=== PATIENT | female | born 1980 | race Caucasian/White ===

== ENCOUNTER → 2019-08-02 11:21 | Outpatient (BNVA) | payer MEDICAID, SELFPAY | PROVIDERS: Family Provider Family Medicine; PCP Family Medicine; Visit Provider Emergency Medicine | DX: S99.929A Unspecified injury of unspecified foot, initial encounter (principal); M25.562 Pain in left knee; S99.919A Unspecified injury of unspecified ankle, initial encounter; L03.90 Cellulitis, unspecified | CPT/HCPCS: 73562; 73610; 73630 ==

== ENCOUNTER → 2021-01-17 10:45 | Outpatient (BNVA) | payer MEDICAID, SELFPAY | PROVIDERS: Family Provider Family Medicine; PCP Family Medicine; Visit Provider Nurse Practitioner Family | DX: Z11.1 Encounter for screening for respiratory tuberculosis (principal); L73.2 Hidradenitis suppurativa | CPT/HCPCS: 86480 ==

== ENCOUNTER 2021-07-06 11:03 | Emergency (ER) | payer MEDICAID, SELFPAY ==
[2021-07-06] VITALS (7 sets, daily range): BP systolic 128–153; BP diastolic 54–102; PULSE 72–98; RESP 16–20; TEMP 36.6–37.2; O2SAT 98–100; BMI 31.0
--- NOTE | 2021-07-06 11:13 | ED_ITS ---
HPI - Abdominal Pain General: Chief Complaint: Abdominal Pain Stated Complaint: severe abdominal pain/vomiting/diarrhea/chills Time Seen by Provider: 07/06/21 11:13 History of Present Illness: Ms. Steel is a 41-year-old lady with history of hidradenitis suppurativa on chronic antibiotics and current use of Humira who presents to the emergency department due to abdominal pain. Symptom onset was acute at approximately 3 AM and woke her up from sleep. She endorses suprapubic and periumbilical pain which is severe in intensity. Since onset symptoms have been constant. She reports numerous episodes of watery diarrhea and emesis. She denies associated blood in stool or vomit. No other specific changes in health, exacerbating, or alleviating factors identified. Last menstrual period approximately 2 and half weeks ago. Onset (ago): hour(s) Pain Consistency: constant Location: Periumbilical and Suprapubic Severity: severe Exacerbating factors: movement Relieving factors: nothing Associated Symptoms: Reports diarrhea, nausea and vomiting Review of Systems General: Reports: 10 or more systems reviewed and unremarkable except in HPI and below GI: Reports: nausea, vomiting and diarrhea PFS ED PFSH: Medical History COPD, moderate Folliculitis Surgical History No significant past surgical history Family History Mother Hypertension Stroke Father Myocardial infarction Denies family history of Hyperlipidemia Social History Smoking and tobacco status: former smoker Quit status (tobacco): has quit using tobacco Second hand smoke exposure: No Alcohol intake: current Alcohol intake frequency: holidays/special occasions only History of recent travel: No Current gender identity: Female Physical Exam Const: COMMON NORMALS: alert GENERAL APPEARANCE: cooperative, well developed and in distress (pain) HENMT: COMMON NORMALS: normocephalic and atraumatic HEAD & SCALP: normocephalic and atraumatic Eye: COMMON NORMALS: conjunctivae normal CONJUNCTIVA: Yes conjunctivae normal SCLERA: sclerae normal Neck/C-Spine: COMMON NORMALS: supple GENERAL: Yes trachea midline Resp: COMMON NORMALS: normal respiratory effort EFFORT & INSPECTION: Yes able to speak in complete sentences Cardio: COMMON NORMALS: regular rate and regular rhythm RATE: regular rate RHYTHM: regular rhythm GI: COMMON NORMALS: Soft to palpation PALPATION: Yes Soft to palpation, Yes Tenderness to palpation present (GI), Yes Guarding due to palpation present (GI) and No Rigid due to palpation Extremity: GENERAL: Yes normal exam except as noted and No edema Neuro: COMMON NORMALS: moves all extremities SENSORIUM/ORIENTATION: Yes alert and No Orientation impaired Psych: COMMON NORMALS: mental status grossly normal and Normal thought process present THOUGHT PROCESS: Normal thought process present Course ED course: - Patient was seen and evaluated by me at bedside - Patient placed on cardiac monitors, IV access obtained - Initial evaluation notable for exam as above - Labs personally interpreted by me [- Fluids, analgesia, and antiemetic given] - Labs notable for Leukocytosis, normal hemoglobin. Metabolic panel with mild evidence of dehydration. No evidence of urinary tract infection. - Imaging notable for no acute abnormality identified on CT scan to explain symptoms. There is a complex appearing left ovarian cyst. Given severity of symptoms I will proceed with ultrasound to eval torsion. Ultrasound negative f or ovarian torsion. Results regarding cyst including need for follow-up were discussed with the patient. - Upon serial reexamination after treatment the patient was improved with symptom treatment. - Based on patient history, evaluation, and testing as interpreted the most likely cause of the patient's condition is abdominal pain of unclear etiology. Left ovarian cysts requiring further outpatient management. - The results of ED evaluation were discussed with the patient including prescriptions and/or symptomatic cares (if applicable) including appropriate and responsible use, followup plan, and return precautions. The patient verbalized understanding and felt safe for discharge. - Patient discharged in satisfactory condition. Note: Click bubbles or prepopulated leigh in note writing are used for assistance with data collection and billing and are inherently more limited than narrative and other text portions of this note. Please use narrative for additional clinical history and defer to narrative/free test for any case of contradictory information. If information appears in only free text or click bubble it should be considered present or absent as reported. Please contact note fiction writer for clarifications of clinical information or contradictory information. MDM is a brief summary, contradictory or erroneous seeming information should be clarified and full note should be reviewed. Vital Signs: Vital signs: Vital Signs Temperature 98 F 07/06/21 16:07 Pulse Rate 72 07/06/21 16:07 Respiratory Rate 18 07/06/21 16:07 Blood Pressure 136/66 07/06/21 16:07 Pulse Oximetry 100 07/06/21 16:07 MDM - Abdominal Pain Medical Decision Making 41-year-old lady with complex past medical history on Humira presenting with abdominal pain and nausea, vomiting, and diarrhea. Leukocytosis present with evidence of mild dehydration. Symptom treatment improved patient's symptoms. No clear etiology on CT scan. Ultrasound notable for a left ovarian cyst which are complex and require further outpatient follow-up which was discussed with the patient. Satisfactory for discharge. Medical Records I reviewed the patient's medical records. Lab Data I reviewed the patient's lab results. : 07/06/21 11:20 07/06/21 11:20 Labs/Radiology: Radiology Impressions Abdomen/Pelvis CT 07/06/21 11:22 IMPRESSION: 1. No bowel obstruction or diverticulitis. 2. Normal appendix. 3. Left ovarian cyst. Pelvic/Transvag US 07/06/21 13:45 IMPRESSION: 1. No sign of ovarian torsion. 2. Left ovarian complicated cystic lesion(s). The differential diagnosis would include hemorrhagic cyst(s), endometrioma(s) and neoplasm. Therefore, short-term follow-up US PELVIS is strongly recommended. Laboratory Results WBC 18.1 10^3/uL (4.0-10.0) H 07/06/21 11:20 RBC 4.54 10^6/uL (4.1-5.3) 07/06/21 11:20 Hgb 14.1 g/dL (11.5-15.3) 07/06/21 11:20 Hct 42.7 % (37.0-47.0) 07/06/21 11:20 MCV 94.1 fl (81-99) 07/06/21 11:20 MCH 31.1 pg (28.0-34.0) 07/06/21 11:20 MCHC 33.0 g/dL (30.0-36.0) 07/06/21 11:20 RDW 12.9 % (12.1-15.1) 07/06/21 11:20 Plt Count 359 10^3/cmm (130-400) 07/06/21 11:20 MPV 10.0 fL (7.4-10.4) 07/06/21 11:20 Neut % (Auto) 85.0 % 07/06/21 11:20 Lymph % (Auto) 11.1 % 07/06/21 11:20 [place] % (Auto) 3.3 % 07/06/21 11:20 Eos % (Auto) 0.1 % 07/06/21 11:20 Baso % (Auto) 0.2 % 07/06/21 11:20 Neut # (Auto) 15.35 10^3/uL (1.8-7.7) H 07/06/21 11:20 Lymph # (Auto) 2.0 10^3/uL (0.8-4.8) 07/06/21 11:20 [place] # (Auto) 0.6 10^3/uL (0.2-0.9) 07/06/21 11:20 Eos # (Auto) 0.0 10^3/uL (0.0-0.8) 07/06/21 11:20 Baso # (Auto) 0.0 10^3/uL (0.0-0.1) 07/06/21 11:20 Nucleated RBC % (auto) 0 % 07/06/21 11:20 Nucleated RBCs # 0.0 /100WBC 07/06/21 11:20 Sodium 137 mmol/L (136-145) 07/06/21 11:20 Potassium 3.4 mmol/L (3.5-5.1) L 07/06/21 11:20 Chloride 102 mmol/L (98-107) 07/06/21 11:20 Carbon Dioxide 21 mmol/L (22-29) L 07/06/21 11:20 Anion Gap 17.4 (5-19) 07/06/21 11:20 BUN 8 mg/dL (6-20) 07/06/21 11:20 Creatinine 0.7 mg/dL (0.5-0.9) 07/06/21 11:20 GFR Calculation 91.8 mL/min (90-130) 07/06/21 11:20 Glucose 162 mg/dL (65-115) H 07/06/21 11:20 Calculated Osmolality 286 mOsm/kg (285-295) 07/06/21 11:20 Calcium 9.6 mg/dL (8.5-10.5) 07/06/21 11:20 Total Bilirubin 0.4 mg/dL (0.15-1.2) 07/06/21 11:20 AST 18 U/L (0-32) 07/06/21 11:20 ALT 12 U/L (0-33) 07/06/21 11:20 Alkaline Phosphatase 104 IU/L (35-105) 07/06/21 11:20 Total Protein 8.0 g/dL (6.6-8.7) 07/06/21 11:20 Albumin 4.7 g/dL (3.5-5.2) 07/06/21 11:20 Globulin 3.3 g/dL (1.3-4.6) 07/06/21 11:20 Lipase 27 U/L (13-60) 07/06/21 11:20 Urine Color Yellow (Yellow) 07/06/21 11:20 Urine Appearance Clear (CLEAR) 07/06/21 11:20 Urine pH 9 (5-7) H 07/06/21 11:20 Ur Specific [place] 1.020 (1.005-1.030) 07/06/21 11:20 Urine Protein Neg (Negative) 07/06/21 11:20 Urine Glucose (UA) Norm (Normal) 07/06/21 11:20 Urine Ketones 2+ (Negative) H 07/06/21 11:20 Urine Blood Neg (Negative) 07/06/21 11:20 Urine Nitrate Negative (Negative) 07/06/21 11:20 Urine Bilirubin Neg (Negative) 07/06/21 11:20 Prot Sulfosalicylic Acd Negative (Negative) 07/06/21 11:20 Urine Urobilinogen Norm mg/dL (Negative) 07/06/21 11:20 Ur Leukocyte Esterase Negative (Negative) 07/06/21 11:20 Discharge Plan Discharge Patient Disposition: Home Clinical Impression: Abdominal pain, Nausea vomiting and diarrhea, Complex ovarian cyst, Leukocytosis, Hypokalemia Condition: Stable Prescriptions: New ondansetron 4 mg tablet,disintegrating 4 mg PO Q8H PRN (Reason: nausea and vomiting) Qty: 15 0RF oxycodone 5 mg tablet 5 mg PO Q4H PRN (Reason: pain) Qty: 6 0RF No Action mupirocin 2 % ointment 1 applic TOPICAL TID Qty: 15 1RF Rx Instructions: apply and cover with warm moist compress for 15 minutes, 3 times daily quetiapine [Seroquel] 300 mg tablet 300 mg PO .COMPLEX 0RF Rx Instructions: 300 mg PO daily; alprazolam [Xanax] 1 mg tablet 1 mg PO QID PRN0RF doxycycline hyclate 100 mg capsule 100 mg PO BID 0RF ropinirole 1 mg tablet 1 mg PO DAILY 0RF Adult Probiotic 3 billion cell capsule 3,000 mmu cells PO DAILY 30 Days Qty: 30 1RF Rx Instructions: administer with a meal may change type/brand per insurance coverage fluticasone propionate [Flonase Allergy Relief] 50 mcg/actuation spray,suspension 1 spray intranasal BID Qty: 18.2 0RF Rx Instructions: administer into each nostril prednisone 20 mg tablet 40 mg PO DAILY 5 Days Qty: 10 0RF Symbicort 80-4.5 mcg/actuation HFA aerosol inhaler 2 puff INHALATION .COMPLEX Qty: 10.2 0RF Rx Instructions: 2 puffs inhalation daily; ibuprofen 800 mg tablet 800 mg PO Q8H PRN (Reason: pain) 14 Days Qty: 42 1RF Discharge Orders: Discharge ED (Routine); Ordered 07/06/21 Ordered By: Ld Joseph Referrals: Kimmy Carlton MD [Physician] - Discharge Diet: Usual diet Discharge Activity: Resume usual activity Patient Instructions: Acute Nausea and Vomiting (ED), Acute Diarrhea (ED), Abdominal Pain (ED), Opioid Safety Activity Restrictions/Additional Instructions: Thank you for visiting the emergency department. You were seen and evaluated for abdominal pain with nausea, vomiting, diarrhea. The exact cause of your symptoms is unclear. It may be viral in nature. You were noted to be mildly dehydrated with mildly low potassium and an elevated white blood cell count which is nonspecific. Given these abnormalities I do recommend repeat labs within the next 2 weeks to ensure normalization. Additionally, as discussed, you do have a left ovarian complicated cystic structure. This requires short-term follow-up with pelvic ultrasound. Please follow-up with your primary care provider to have this scheduled and completed in the next 1 to 2 weeks. For radiology interpretation this could be hemo rrhagic cysts, endometriomas, or neoplasm. You will be given a prescription for antinausea medication and also pain medication. You may use [id number] medications however please do not exceed the daily recommended dosage and please keep in mind that many namebrand medications contain the same active ingredients. Do not combine opioids with other sedating medications or substances. Do not operate machinery or drive while under the influence of these medications. Common side effect includes constipation. Please return to the emergency department for uncontrolled symptoms, inability t o tolerate oral intake, or anything else that you are concerned about and feel needs emergency department evaluation. Coding Level of Care Code ED Insulation Professional for Blanca Infante Exam Comprehensive
--- NOTE | 2021-07-06 11:22 | CTR_ITS ---
PROCEDURE INFORMATION: Exam: CT Abdomen And Pelvis With Contrast Exam date and time: 07/06/2021 12:39 PM Age: 41 years old Clinical indication: Abdominal pain; Localized; Other: Suprapubic and periumbilical pain, n/v/d TECHNIQUE: Imaging protocol: Computed tomography of the abdomen and pelvis with contrast. Radiation optimization: All CT scans at this facility use at least one of these dose optimization techniques: automated exposure control; mA and/or kV adjustment per patient size (includes targeted exams where dose is matched to clinical indication); or iterative reconstruction. Contrast material: OMNI 300; Contrast volume: 95 ml; Contrast route: INTRAVENOUS (IV); COMPARISON: No relevant prior studies available. RADIATION DOSE METRICS: Total DLP (mGy-cm): 1656.41 FINDINGS: Lungs: No acute basilar lung consolidation. Liver: The liver is homogeneous and is not enlarged. Gallbladder and bile ducts: No calcified gallstones, gallbladder wall thickening, or pericholecystic inflammation. No biliary ductal dilation. Pancreas: No pancreatic mass. No peripancreatic inflammation. No pancreatic ductal dilation. Spleen: The spleen is homogeneous and is not enlarged. Adrenal glands: No adrenal mass. Kidneys and ureters: No hydronephrosis, nephrolithiasis, or renal mass. Stomach and bowel: No bowel obstruction, colitis or diverticulitis. Appendix: The appendix has a normal caliber with no wall thickening. No periappendiceal inflammation. Intraperitoneal space: Trace free intraperitoneal fluid in the pelvis. No pneumoperitoneum. Vasculature: No abdominal aortic aneurysm. The mesenteric arteries are patent. The mesenteric, portal, and hepatic veins are patent. Lymph nodes: No pathologically enlarged lymph nodes. Urinary bladder: No urinary bladder calculus or wall thickening. Reproductive: There is a left ovarian cyst measuring approximately 4.5 cm in size, though pelvic ultrasound would be more definitive in evaluation. Bones/joints: No acute osseous abnormality. Soft tissues: No acute soft tissue abnormality. CT/CT abdomen pelvis w con* [id number] IMPRESSION: 1. No bowel obstruction or diverticulitis. 2. Normal appendix. 3. Left ovarian cyst.
[2021-07-06 11:30] LABS: Add Urine Microscopic? NO; Charge for UA Resulting for Rev
[2021-07-06] MEDS: morphine 4 mg/mL SDV 1 mL IVP (11:30)
[2021-07-06] MEDS: lactated ringers 1,000 ML 999 ML IV (11:30)
[2021-07-06] MEDS: ondansetron 2 mg/ML SDV 2 mL 4 MG IVP (11:30)
[2021-07-06 11:40] LABS: Basophils % 0.2 %; Eosinophils % 0.1 %; Hematocrit 42.7 % (37.0-47.0); Hemoglobin 14.1 g/dL (11.5-15.3); Lymphocytes % 11.1 %; Mean Corpuscular Hemoglobin 31.1 pg (28.0-34.0); Mean Corpuscular Volume 94.1 fl (81-99); Monocytes # 0.6 10^3/uL (0.2-0.9); Monocytes % 3.3 %; Neutrophils # 15.35 10^3/uL (1.8-7.7); Nucleated Red Blood Cells % 0 %; Platelet Count 359 10^3/cmm (130-400); Red Blood Count 4.54 10^6/uL (4.1-5.3); Red Cell Distribution Width 12.9 % (12.1-15.1); White Blood Count 18.1 10^3/uL (4.0-10.0)
[2021-07-06 11:58] LABS: Urine Appearance Clear (CLEAR); Urine Color Yellow (Yellow)
[2021-07-06 11:59] LABS: Bilirubin Urine Neg (Negative); Blood Urine Neg (Negative); Glucose Urine UA Norm (Normal); Ketones Urine 2+ (Negative); Leukocyte Esterase Urine Negative (Negative); Nitrate Urine Negative (Negative); Protein Urine Neg (Negative); Sulfosalicylic Acid Urine Negative (Negative); Urobilinogen Urine Norm (Negative); pH Urine 9 (5-7)
--- NOTE | 2021-07-06 12:00 | PC.NURSE ---
Dr. Joseph notified of pt pain, pt requesting something else for pain.
[2021-07-06] MEDS: HYDROmorphone 1 mg/mL INJ 1 mL 0.5 MG IVP ×2 (12:02→12:45)
[2021-07-06 12:07] LABS: Alanine Aminotransferase 12 U/L (0-33); Albumin Level 4.7 g/dL (3.5-5.2); Alkaline Phosphatase 104 IU/L (35-105); Aspartate Amino Transferase 18 U/L (0-32); Blood Urea Nitrogen 8 mg/dL (6-20); Calcium 9.6 mg/dL (8.5-10.5); Carbon Dioxide 21 mmol/L (22-29); Chloride 102 mmol/L (98-107); Globulin 3.3 g/dL (1.3-4.6); Glomerular Filtration Rate 91.8 mL/min (90-130); Glucose 162 mg/dL (65-115); Lipase 27 U/L (13-60); Osmolality Calculated 286 mOsm/kg (285-295); Sodium 137 mmol/L (136-145); Total Bilirubin 0.4 mg/dL (0.15-1.2)
[2021-07-06 12:21] LABS: Anion Gap 17.4 (5-19); Potassium 3.4 mmol/L (3.5-5.1)
[2021-07-06] MEDS: iohexol 300 mg/mL 100 mL Btl IV (12:45)
--- NOTE | 2021-07-06 13:45 | USR_ITS ---
PROCEDURE INFORMATION: Exam: US Pelvis Complete, Transabdominal and US Pelvis, Transvaginal Exam date and time: 07/06/2021 2:05 PM Age: 41 years old Clinical indication: Pelvic pain; Patient HX: Sudden onset of severe pain this morning at 4am; Additional info: Abdominal pain, cyst on CT, eval torsion TECHNIQUE: Imaging protocol: Real-time transabdominal and transvaginal pelvic ultrasound (complete) with image documentation. Transvaginal imaging was used for better evaluation of the endometrium, adnexa, and/or cervix. COMPARISON: CT ABDOMEN/PELVIS 07/06/2021 12:39 PM FINDINGS: Uterus: The uterus measures 8.6 cm x 4.2 cm x 5.7 cm in size. The endometrial stripe measures 7 mm in thickness. Cervix: The cervix measures 4.6 cm in length. Right ovary/adnexa: The right ovary measures 2.0 cm x 3.0 cm x 2.6 cm in size. Blood flow is detected in the right ovary on color flow Doppler ultrasound and pulse-wave Doppler spectral analysis. Left ovary/adnexa: The left ovary measures 6.4 cm x 3.4 cm x 5.2 cm in size. Within the left ovary is a septated, complex cystic lesion versus 2 adjacent complex cystic lesions, occupying most of the left ovary. There is blood flow in the solid portion of the left ovary on color flow Doppler ultrasound and pulse-wave Doppler spectral analysis. Intraperitoneal space: Trace fluid in the pelvis demonstrated on the prior comparison CT ABDOMEN/PELVIS is not appreciated on this study. Urinary bladder: The urinary bladder appears normal. US/US pelvic with transvaginal IMPRESSION: 1. No sign of ovarian torsion. 2. Left ovarian complicated cystic lesion(s). The differential diagnosis would include hemorrhagic cyst(s), endometrioma(s) and neoplasm. Therefore, short-term follow-up US PELVIS is strongly recommended.
[2021-07-06] MEDS: potassium chloride ER 20 mEq Tablet 40 MEQ PO (15:59)
== END 2021-07-06 16:09 | disposition home or self-care (01) ==
PROVIDERS: Emergency Provider Emergency Medicine; PCP Family Medicine
DX: R10.9 Unspecified abdominal pain (principal); R11.2 Nausea with vomiting, unspecified; R19.7 Diarrhea, unspecified; N83.292 Other ovarian cyst, left side; E86.0 Dehydration; D72.829 Elevated white blood cell count, unspecified; E87.6 Hypokalemia; J44.9 Chronic obstructive pulmonary disease, unspecified; L73.2 Hidradenitis suppurativa; Z79.2 Long term (current) use of antibiotics; Z87.891 Personal history of nicotine dependence; Z79.899 Other long term (current) drug therapy
CPT/HCPCS: 74177; 76830; 76856; 80053; 81003; 83690; 85025; 96361; 96374; 96375; 96376; 99284; J1170; J2270; J2405; Q9967